=== PATIENT | female | born 1945 | race Hispanic/Latino ===

== ENCOUNTER 2018-12-13 04:46 | Inpatient (IN) | payer MEDICARE ==
[2018-12-13 06:09] LABS: Basophils # (Auto) 0.2 K/mm3 (0.0-0.1); Basophils % (Auto) 0.9 % (0.0-1.8); Eosinophils # (Auto) 0.7 K/mm3 (0.0-0.4); Eosinophils % (Auto) 3.3 % (0.0-4.3); Hematocrit 38.3 % (30.3-42.9); Lymphocytes # (Auto) 1.6 K/mm3 (1.2-5.4); Mean Corpuscular HGB Conc 34 % (30-34); Mean Corpuscular Volume 97 fl (79-97); Monocytes # (Auto) 1.3 K/mm3 (0.0-0.8); Monocytes % (Auto) 6.4 % (0.0-7.3); Platelet Count 318 K/mm3 (140-440); Red Blood Count 3.93 M/mm3 (3.65-5.03); Red Cell Distribution Width 13.3 % (13.2-15.2)
[2018-12-13 06:17] LABS: INR 1.05 (0.87-1.13); Partial Thromboplastin Time 29.3 Sec. (24.2-36.6)
[2018-12-13 06:37] LABS: Alanine Aminotransferase 7 units/L (7-56); Albumin 3.4 g/dL (3.9-5); BUN/Creatinine Ratio 9; Blood Urea Nitrogen 6 mg/dL (7-17); Calcium 9.1 mg/dL (8.4-10.2); Hemolysis Index 20
[2018-12-13 07:56] LABS: Bacteria,Urine 1+ /HPF (Negative); Bilirubin,Urine NEG (Negative); Blood,Urine SM (Negative); Color,Urine Yellow (Yellow); Protein,Urine <15 mg/dL mg/dL (Negative); Urobilinogen,Urine < 2.0 mg/dL (<2.0)
[2018-12-13] MEDS ORDERED: NACL 0.9% 1000 ML IV ONE (08:43)
--- NOTE | 2018-12-13 08:51 | Emergency Department Report ---
ED Abdominal Pain HPI - General Chief Complaint: Altered Mental Status Stated Complaint: POSSIBLE SYNCOPAL EPISODE, ABD PAIN, WEAK Time Seen by Provider: 12/13/18 08:12 Source: patient, EMS Mode of arrival: Stretcher Limitations: Physical Limitation - History of Present Illness Initial Comments: Mrs. Orta is a 73-year-old female with history of COPD, tobacco abuse, hypertension, rheumatoid arthritis, "leaky heart valve", chronic back pain, who presents with lower abdominal pain and diarrhea which began this morning. Severe cramping pain in the right lower quadrant and left lower quadrant. Previous history of cholecystectomy and tubal ligation. She felt dizzy and faint as if she was going to pass out this morning. She had stumbling stagge ring gait. Her daughter called 911 concerned for stroke. She continues to have persistent lower abdominal pain. She has productive cough which is unchanged. Mrs. Orta takes prednisone 5 mg daily. She was told that her appendix was removed during her tubal ligation surgery. PCP Dr. Tiffanie Whitney [place] [employer] Secretary Dr. Diego [place] She lives with her , daughter and grandson. 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 She previously smoked one pack of cigarettes per day. She currently smokes 6 cigarettes per day. She is retired. 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 MD Complaint: abdominal pain -: Gradual, This morning Location: LLQ, RLQ Severity: severe Severity scale (0 -10): 8 Quality: cramping Consistency: constant Improves With: nothing Worsens With: nothing Associated Symptoms: diarrhea - Related Data Home Medications Medication Instructions Recorded Confirmed Last Taken ALBUTEROL Inhaler (OR & NICU) 2 puff IH QID PRN 03/20/14 03/20/14 Unknown [Proair] ALPRAZolam [Xanax TAB] 1 mg PO BID 03/20/14 03/20/14 Unknown Gabapentin 400 mg PO BID 03/20/14 03/20/14 Unknown HYDROcodone/ACETAMINOPHEN [Lortab 7.5 mg PO QDAY 03/20/14 03/20/14 Unknown 7.5-325 mg Tablet] Lisinopril 10 mg PO QDAY 03/20/14 03/20/14 Unknown Nebulizer [Compact Compressor 2.5 mg IH QID PRN 03/20/14 03/20/14 Unknown Nebulizer] Allergies Allergy/AdvReac Type Severity Reaction Status Date / Time No Known Allergies Allergy Unverified 03/20/14 18:18 ED Review of Systems ROS: Stated complaint: POSSIBLE SYNCOPAL EPISODE, ABD PAIN, WEAK Other details as noted in HPI Comment: All other systems reviewed and negative Constitutional: malaise. denies: fever Gastrointestinal: abdominal pain, diarrhea Neurological: abnormal gait ED Past Medical Hx - Past Medical History Previous Medical History?: Yes Hx Hypertension: Yes Hx Arthritis: Yes (RA) Hx COPD: Yes Additional medical history: leaking heart valve, heart murmur - Social History Smoking Status: Current Every Day Smoker Substance Use Type: None - Medications Home Medications: Home Medications Medication Instructions Recorded Confirmed Last Taken Type ALBUTEROL Inhaler (OR & NICU) 2 puff IH QID PRN 03/20/14 03/20/14 Unknown History [Proair] ALPRAZolam [Xanax TAB] 1 mg PO BID 03/20/14 03/20/14 Unknown History Gabapentin 400 mg PO BID 03/20/14 03/20/14 Unknown History HYDROcodone/ACETAMINOPHEN [Lortab 7.5 mg PO QDAY 03/20/14 03/20/14 Unknown History 7.5-325 mg Tablet] Lisinopril 10 mg PO QDAY 03/20/14 03/20/14 Unknown History Nebulizer [Compact Compressor 2.5 mg IH QID PRN 03/20/14 03/20/14 Unknown History Nebulizer] ED Physical Exam - General Limitations: No Limitations General appearance: alert, in no apparent distress - Head Head exam: Present: atraumatic, normocephalic - Eye Eye exam: Present: normal appearance - ENT ENT exam: Present: mucous membranes moist - Neck Neck exam: Present: normal inspection, full ROM. Absent: tenderness, menin gismus - Respiratory Respiratory exam: Present: normal lung sounds bilaterally. Absent: respiratory distress, wheezes, rales, rhonchi - Cardiovascular Cardiovascular Exam: Present: regular rate, normal rhythm, normal heart sounds. Absent: systolic murmur, diastolic murmur, rubs, gallop - GI/Abdominal GI/Abdominal exam: Present: soft, normal bowel sounds. Absent: distended, tend erness, guarding, rebound - Extremities Exam Extremities exam: Present: normal inspection - Back Exam Back exam: Present: normal inspection - Neurological Exam Neurological exam: Present: alert, oriented X3, CN II-XII intact, normal gait. Absent: motor sensory deficit - Expanded Neurological Exam Expanded Patient oriented to: Present: person, place, time Speech: Present: fluid speech Cranial nerves: EOM's Intact: Normal, Gag Reflex: Normal Cerebellar function: Finger to Nose: Normal, Heel to [place]: Normal Upper motor neuron: Yaniv Neglect: Normal, Pronator Drift: Normal Sensory exam: Upper Extremity Light Touch: Normal Motor strength exam: RUE: 5, LUE: 5, RLE: 5, LLE: 5 Best Eye Response ([place]): (4) open spontaneously Best Motor Response ([place]): (6) obeys commands Best Verbal Response ([place]): (5) oriented [place] Total: 15 - Psychiatric Psychiatric exam: Present: normal affect, normal mood - Skin Skin exam: Present: warm, dry, intact, normal color. Absent: rash ED Course Vital Signs 12/13/18 12/13/18 12/13/18 04:49 04:58 05:00 Pulse Rate 82 70 Respiratory 18 18 18 Rate Blood Pressure 96/43 102/69 Blood Pressure [Right] O2 Sat by Pulse 96 96 95 Oximetry 12/13/18 12/13/18 12/13/18 05:15 05:30 05:42 Pulse Rate 71 72 74 Respiratory 21 18 16 Rate Blood Pressure 91/60 92/58 Blood Pressure [Right] O2 Sat by Pulse 93 93 98 Oximetry 12/13/18 12/13/18 12/13/18 05:45 06:00 06:15 Pulse Rate 76 74 70 Respiratory 16 17 18 Rate Blood Pressure 102/67 104/58 95/62 Blood Pressure [Right] O2 Sat by Pulse 97 95 96 Oximetry 12/13/18 12/13/18 12/13/18 06:30 07:15 09:52 Pulse Rate 70 81 72 Respiratory 19 18 18 Rate Blood Pressure 96/62 Blood Pressure 101/67 130/73 [Right] O2 Sat by Pulse 96 96 97 Oximetry ED Medical Decision Making - Lab Data Result diagrams: 12/13/18 05:59 12/13/18 05:59 - EKG Data 12/13/18 08:51 EKG obtained 0750 Normal sinus rhythm at 60 beats a minute normal axis normal intervals no ST-T signs of ischemia normal EKG - Radiology Data Radiology results: report reviewed interpreted by me: CT had chronic sinusitis, CT chest no acute process, CT abdomen and pelvis findings of colitis - Medical Decision Making Mr. Orta presents with abdominal pain cramping diarrhea this corresponds to colitis findings on CT. I suspect staggering gait due to transient hypotension and vasovagal syndrome and illness. No indication of the lines of TIA or CVA. Given antibiotics in the ED, sepsis protocol initiated. Leukocytosis present with colitis and chronic steroid use. Admitted to hospitalist service Critical care attestation.: If time is entered above; I have spent that time in minutes in the direct care of this critically ill patient, excluding procedure time. ED Disposition Clinical Impression: Colitis, SIRS (systemic inflammatory response syndrome) Disposition: OP ADMIT IP TO THIS HOSP Is pt being admited?: Yes Does the pt Need Aspirin: No Condition: Stable
[2018-12-13] MEDS: MAXIPIME/NS 2 GM/100 ML 2 GM/100 ML BAG IV SCH ×3 (09:39→23:35)
--- NOTE | 2018-12-13 09:49 | Cat Scan Report ---
CT HEAD WITHOUT CONTRAST: HISTORY: ataxia. TECHNIQUE: Sequential 2.5mm CT images. COMPARISON: none. FINDINGS: Cerebral Parenchyma: Within normal limits. Cerebellum: Within normal limits. Brainstem: Within normal limits. Ventricles: Normal. Sella: Normal. Extra-axial spaces: Normal. Basal Cisterns: Normal. Intracranial Hemorrhage: None. Midline Shift: None. Calvarium: Normal. Sinuses: Mild diffuse mucosal thickening is noted throughout all paranasal sinuses. Mastoid Air Cells: Normal. Visualized Orbits: Normal. IMPRESSION: Cranial CT scan within normal limits. Mild chronic pansinusitis.
--- NOTE | 2018-12-13 09:54 | Cat Scan Report ---
CT CHEST WITHOUT CONTRAST: HISTORY: Cough, COPD, leukocytosis. COMPARISON: none. TECHNIQUE: Helical CT in 1.25mm intervals without IV contrast. Sagittal and coronal reformatted images. FINDINGS: Thyroid gland: Normal. Tracheobronchial tree: Normal. Esophagus: Normal. Heart: Normal size. Mild coronary artery calcifications. Pericardium: Normal. Mediastinum: The aorta is mildly ectatic with scattered calcifications. No mediastinal mass or pathologic adenopathy. Lung Elias: There are mild chronic interstitial changes throughout both lungs. No evidence for mass, nodule or infiltrate. Pleural Spaces: Normal. Musculoskeletal: Osteopenia. Mild thoracic spondylosis. IMPRESSION: No acute process is identified in the chest.
--- NOTE | 2018-12-13 09:58 | Cat Scan Report ---
CT ABDOMEN PELVIS WITH CONTRAST: HISTORY: Lower abdominal pain, diarrhea, leukocytosis. COMPARISON: none. TECHNIQUE: Helical CT in 1.25mm intervals following IV contrast. Sagittal and coronal reconstructions. FINDINGS: Liver: Normal. Biliary system: Cholecystectomy. Pancreas: Mild atrophy. No mass or inflammation. Spleen: Normal. Kidneys/ureters/bladder: There is scattered small simple appearing renal cysts in both kidneys. No evidence for mass, hydronephrosis or perinephric fluid. The ureters and bladder are unremarkable. Adrenal glands: Normal. Aorta: Mild diffuse calcifications. No dissection, stenosis or aneurysm. Intestines: No oral contrast was administered which limits this exam. There is moderate circumferential thickening of the descending and sigmoid colon consistent with a nonspecific colitis. The remaining bowel loops are unremarkable. No evidence for obstruction or obvious mass. Appendix: Not confidently identified, correlate with surgical history. Pelvic viscera: There are a few small calcified uterine fibroids in the uterus. The adnexa are unremarkable. Ascites: None. Adenopathy: None. Musculoskeletal: Osteopenia. Mild thoracolumbar spondylosis. IMPRESSION: Circumferential thickening of the distal colon consistent with a nonspecific colitis. Scattered simple renal cysts. Cholecystectomy. Mild uterine fibroid disease.
[2018-12-13] MEDS: FLAGYL 500 MG/100 ML 500 MG/100 ML BAG IV SCH ×3 (10:23→21:45)
[2018-12-13] MEDS ORDERED: NACL 0.9% 1000 ML 1,000 ML ONE (11:28)
[2018-12-13] MEDS ORDERED: MORPHINE IV ONE (12:59)
--- NOTE | 2018-12-13 15:34 | Gastroenterology Consultation ---
<GLADIS HAN - Last Filed: 12/13/18 15:51> History of Present Illness - Reason for Consult Consult date: 12/13/18 abdominal pain Requesting physician: RONNIE MAYEN - History of Present Illness Patient is a 73 y/o female with PMH of COPD, tobacco abuse, HTN, rheumatoid arthritis, "leaky heart valve", and chronic back pain who presented to ED with c/o lower abdominal pain and diarrhea with associated dizziness. Upon admission, she underwent an abd CT that showed colitis. This afternoon patient was resting in bed w/o acute distress but ill appearing. She reports lower abdominal pain/cramping x ~1 week that has progressively worsened with associated watery blood tinged diarrhea x 1 day with BMs >10-15. Normal bowel habit is BMs x 2-3 /week with solid stool. Admits to nausea but no vomiting, CP, fever, hematemesis, melena, or constipation. Has chronic cough with mild SOB 2/2 COPD. States she recently took antibiotics (completed a few weeks ago; amoxicillin and levaquin) for tx of bronchitis. No recent travel or known ill contacts. No hx or Fhx of IBD or colon CA. Has a hx of colon polyps and is followed by [facility] gastroenterology specialists with last colonoscopy in 1999 with negative results per pt report. Past History Past Medical History: other (see HPI) Past Surgical History: appendectomy, cholecystectomy, Other (tubal ligation, cysts removed from breasts) Social history: smoking. denies: alcohol abuse Medications and Allergies Allergies Allergy/AdvReac Type Severity Reaction Status Date / Time No Known Allergies Allergy Unverified 03/20/14 18:18 Home Medications Medication Instructions Recorded Confirmed Last Taken Type ALBUTEROL Inhaler (OR & NICU) 2 puff IH QID PRN 03/20/14 12/13/18 Unknown History [Proair] ALPRAZolam [Xanax TAB] 1 mg PO BID 03/20/14 12/13/18 Unknown History Gabapentin 400 mg PO BID 03/20/14 12/13/18 Unknown History Lisinopril 10 mg PO QDAY 03/20/14 12/13/18 Unknown History ALBUTEROL NEB's [Proventil] 2.5 mg IH Q6H PRN 12/13/18 12/13/18 Unknown History Budesonide/Formoterol Fumarate 2 puff IH BID 12/13/18 12/13/18 12/12/18 History [Symbicort 80-4.5 Mcg Inhaler] Fluticasone [Flonase] 1 spray NS QDAY 12/13/18 12/13/18 Unknown History Tiotropium Herod [Spiriva 2 puff IH DAILY 12/13/18 12/13/18 Unknown History Respimat] Active Meds: Active Medications Cefepime HCl (Maxipime/Ns 2 Gm/100 Ml) 2 gm in 100 mls @ 200 mls/hr IV Q8HR [facility]; Protocol Last Admin: 12/13/18 14:30 Dose: 200 mls/hr Documented by: Metronidazole (Flagyl 500 Mg/100 Ml) 500 mg in 100 mls @ 100 mls/hr IV Q8HR [facility]; Protocol Last Admin: 12/13/18 15:12 Dose: 100 mls/hr Documented by: medications reviewed/updated as required Review of Systems - Review of Systems All systems: negative Constitutional: other (dizziness) Gastrointestinal: abdominal pain, nausea Exam - Constitutional Vital Signs: Temp Pulse Resp BP Pulse Ox 98.0 F 68 16 130/75 99 12/13/18 13:18 12/13/18 14:20 12/13/18 14:20 12/13/18 13:18 12/13/18 14:20 General appearance: no acute distress, other (ill appearing) - Respiratory Respiratory effort: normal Respiratory: bilateral: diminished - Cardiovascular Rhythm: regular - Gastrointestinal General gastrointestinal: Present: soft, tender (mild TTP in lower abdomen), non-distended, normal bowel sounds - Neurologic Neurological: alert and oriented x3 - Labs CBC & Chem 7: 12/13/18 05:59 12/13/18 05:59 Lab Results: Laboratory Results - last 24 hr 12/13/18 12/13/18 12/13/18 05:59 05:59 05:59 WBC 20.1 H RBC 3.93 Hgb 13.0 Hct 38.3 MCV 97 MCH 33 H MCHC 34 RDW 13.3 Plt Count 318 Lymph % (Auto) 8.[address] [place] % (Auto) 6.4 Eos % (Auto) 3.3 Baso % (Auto) 0.9 Lymph # 1.6 [place] # 1.3 H Eos # 0.7 H Baso # 0.2 H Seg Neutrophils % 81.4 H Seg Neutrophils # 16.4 H PT 13.4 INR 1.05 APTT 29.3 Sodium 134 L Potassium 3.5 L Chloride 100.8 Carbon Dioxide 21 L Anion Gap 16 BUN 6 L Creatinine 0.7 Estimated GFR > 60 BUN/Creatinine Ratio 9 Glucose 104 H Lactic Acid Calcium 9.1 Total Bilirubin 0.20 AST 13 ALT 7 Alkaline Phosphatase 75 Total Protein 5.9 L Albumin 3.4 L Albumin/Globulin Ratio 1.4 Urine Color Urine Turbidity Urine pH Ur Specific [place] Urine Protein Urine Glucose (UA) Urine Ketones Urine Blood Urine Nitrite Urine Bilirubin Urine Urobilinogen Ur Leukocyte Esterase Urine WBC (Auto) Urine RBC (Auto) U Epithel Cells (Auto) Urine Bacteria (Auto) 12/13/18 12/13/18 12/13/18 07:10 08:52 11:29 WBC RBC Hgb Hct MCV MCH MCHC RDW Plt Count Lymph % (Auto) [place] % (Auto) Eos % (Auto) Baso % (Auto) Lymph # [facility] # Eos # Baso # Seg Neutrophils % Seg Neutrophils # PT INR APTT Sodium Potassium Chloride Carbon Dioxide Anion Gap BUN Creatinine Estimated GFR BUN/Creatinine Ratio Glucose Lactic Acid 0.80 0.90 Calcium Total Bilirubin AST ALT Alkaline Phosphatase Total Protein Albumin Albumin/Globulin Ratio Urine Color Yellow Urine Turbidity Clear Urine pH 6.0 Ur Specific [place] 1.008 Urine Protein <15 mg/dl Urine Glucose (UA) Neg Urine Ketones Neg Urine Blood Sm Urine Nitrite Neg Urine Bilirubin Neg Urine Urobilinogen < 2.0 Ur Leukocyte Esterase Tr Urine WBC (Auto) 2.0 Urine RBC (Auto) 2.0 U Epithel Cells (Auto) < 1.0 Urine Bacteria (Auto) 1+ Assessment and Plan 1.lower abdominal pain 2.diarrhea 3.colitis see on CT -afebrile -WBC 20.1 -H/H WNL -abd CT showed nonspecific colitis -last colonoscopy 1999 with negative results per pt report (followed by [facility] gastroenterology specialists; records unavailable) -etiology-likely infectious given history of recent abx therapy vs other -no plan for scope at this time -stool studies pending included C-diff -agree with empiric antibiotics -okay for clears if tolerated -continue to rend labs and supportive care -will follow <MEET HINOJOSA - Last Filed: 12/13/18 23:44> Medications and Allergies Active Meds: Active Medications Acetaminophen (Tylenol) 650 mg PO Q4H PRN PRN Reason: Pain MILD(1-3)/Fever >100.5/SALVADOR Albuterol (Proventil) 2.5 mg IH Q6HRT PRN PRN Reason: Wheezing Alprazolam (Xanax) 1 mg PO BID [facility] Last Admin: 12/13/18 21:46 Dose: 1 mg Documented by: Arformoterol Tartrate (Brovana Nebu) 15 mcg IH Q12HRT [facility] Budesonide (Pulmicort) 0.5 mg IH Q12HRT [facility] Clonidine HCl (Catapres-Tts Patch) 0.1 mg TD Tu [facility] Last Admin: 12/13/18 22:56 Dose: 0.1 mg Documented by: Enoxaparin Sodium (Lovenox) 40 mg SUB-Q QDAY@2200 [facility] Last Admin: 12/13/18 21:44 Dose: 40 mg Documented by: Fluticasone Propionate (Flonase) 50 mcg NS QDAY [facility] Last Admin: 12/13/18 22:55 Dose: 50 mcg Documented by: Hydromorphone HCl (Dilaudid) 0.5 mg IV Q3H PRN PRN Reason: Pain , Severe (7-10) Cefepime HCl (Maxipime/Ns 2 Gm/100 Ml) 2 gm in 100 mls @ 200 mls/hr IV Q8HR [facility]; Protocol Last Admin: 12/13/18 23:35 Dose: 200 mls/hr Documented by: Metronidazole (Flagyl 500 Mg/100 Ml) 500 mg in 100 mls @ 100 mls/hr IV Q8HR [facility]; Protocol Last Admin: 12/13/18 21:45 Dose: 100 mls/hr Documented by: Sodium Chloride (Nacl 0.9% 1000 Ml) 1,000 mls @ 75 mls/hr IV DIRECT [facility] Last Admin: 12/13/18 21:45 Dose: 75 mls/hr Documented by: Metoclopramide HCl (Reglan) 10 mg IV Q6H PRN PRN Reason: Nausea And Vomiting Ondansetron HCl (Zofran) 4 mg IV Q8H PRN PRN Reason: Nausea And Vomiting Sodium Chloride (Sodium Chloride Flush Syringe 10 Ml) 10 ml IV BID [facility] Last Admin: 12/13/18 21:47 Dose: 10 ml Documented by: Sodium Chloride (Sodium Chloride Flush Syringe 10 Ml) 10 ml IV PRN PRN PRN Reason: LINE FLUSH Tiotropium Herod (Spiriva) 1 puff IH Q24HR [facility] Exam - Constitutional Vital Signs: Temp Pulse Resp BP Pulse Ox 98.2 F 67 18 135/62 96 12/13/18 20:13 12/13/18 20:13 12/13/18 20:13 12/13/18 20:13 12/13/18 20:13 - Labs CBC & Chem 7: 12/13/18 05:59 12/13/18 05:59 Lab Results: Laboratory Results - last 24 hr 12/13/18 12/13/18 12/13/18 05:59 05:59 05:59 WBC 20.1 H RBC 3.93 Hgb 13.0 Hct 38.3 MCV 97 MCH 33 H MCHC 34 RDW 13.3 Plt Count 318 Lymph % (Auto) 8.[address] [place] % (Auto) 6.4 Eos % (Auto) 3.3 Baso % (Auto) 0.9 Lymph # 1.6 [facility] # 1.3 H Eos # 0.7 H Baso # 0.2 H Seg Neutrophils % 81.4 H Seg Neutrophils # 16.4 H PT 13.4 INR 1.05 APTT 29.3 Sodium 134 L Potassium 3.5 L Chloride 100.8 Carbon Dioxide 21 L Anion Gap 16 BUN 6 L Creatinine 0.7 Estimated GFR > 60 BUN/Creatinine Ratio 9 Glucose 104 H Hemoglobin A1c Lactic Acid Calcium 9.1 Total Bilirubin 0.20 AST 13 ALT 7 Alkaline Phosphatase 75 Total Protein 5.9 L Albumin 3.4 L Albumin/Globulin Ratio 1.4 Urine Color Urine Turbidity Urine pH Ur Specific [place] Urine Protein Urine Glucose (UA) Urine Ketones Urine Blood Urine Nitrite Urine Bilirubin Urine Urobilinogen Ur Leukocyte Esterase Urine WBC (Auto) Urine RBC (Auto) U Epithel Cells (Auto) Urine Bacteria (Auto) 12/13/18 12/13/18 12/13/18 07:10 08:52 11:29 WBC RBC Hgb Hct MCV MCH MCHC RDW Plt Count Lymph % (Auto) [place] % (Auto) Eos % (Auto) Baso % (Auto) Lymph # [facility] # Eos # Baso # Seg Neutrophils % Seg Neutrophils # PT INR APTT Sodium Potassium Chloride Carbon Dioxide Anion Gap BUN Creatinine Estimated GFR BUN/Creatinine Ratio Glucose Hemoglobin A1c Lactic Acid 0.80 0.90 Calcium Total Bilirubin AST ALT Alkaline Phosphatase Total Protein Albumin Albumin/Globulin Ratio Urine Color Yellow Urine Turbidity Clear Urine pH 6.0 Ur Specific [place] 1.008 Urine Protein <15 mg/dl Urine Glucose (UA) Neg Urine Ketones Neg Urine Blood Sm Urine Nitrite Neg Urine Bilirubin Neg Urine Urobilinogen < 2.0 Ur Leukocyte Esterase Tr Urine WBC (Auto) 2.0 Urine RBC (Auto) 2.0 U Epithel Cells (Auto) < 1.0 Urine Bacteria (Auto) 1+ 12/13/18 21:14 WBC RBC Hgb Hct MCV MCH MCHC RDW Plt Count Lymph % (Auto) [place] % (Auto) Eos % (Auto) Baso % (Auto) Lymph # [facility] # Eos # Baso # Seg Neutrophils % Seg Neutrophils # PT INR APTT Sodium Potassium Chloride Carbon Dioxide Anion Gap BUN Creatinine Estimated GFR BUN/Creatinine Ratio Glucose Hemoglobin A1c 5.5 Lactic Acid Calcium Total Bilirubin AST ALT Alkaline Phosphatase Total Protein Albumin Albumin/Globulin Ratio Urine Color Urine Turbidity Urine pH Ur Specific [place] Urine Protein Urine Glucose (UA) Urine Ketones Urine Blood Urine Nitrite Urine Bilirubin Urine Urobilinogen Ur Leukocyte Esterase Urine WBC (Auto) Urine RBC (Auto) U Epithel Cells (Auto) Urine Bacteria (Auto) Assessment and Plan Advanced practitioner's assessment and plan evaluated and I agree with the plan Meet Hinojsoa M.D.
--- NOTE | 2018-12-13 20:38 | History and Physical Report ---
History of Present Illness Date of examination: 12/13/18 Date of admission: 12/13/18 11:52 Past History Past Medical History: other (see HPI) Past Surgical History: appendectomy, cholecystectomy, Other (tubal ligation, cysts removed from breasts) Social history: smoking. denies: alcohol abuse Medications and Allergies Allergies Allergy/AdvReac Type Severity Reaction Status Date / Time No Known Allergies Allergy Unverified 03/20/14 18:18 Home Medications Medication Instructions Recorded Confirmed Last Taken Type ALBUTEROL Inhaler (OR & NICU) 2 puff IH QID PRN 03/20/14 12/13/18 Unknown History [Proair] ALPRAZolam [Xanax TAB] 1 mg PO BID 03/20/14 12/13/18 Unknown History Gabapentin 400 mg PO BID 03/20/14 12/13/18 Unknown History Lisinopril 10 mg PO QDAY 03/20/14 12/13/18 Unknown History ALBUTEROL NEB's [Proventil] 2.5 mg IH Q6H PRN 12/13/18 12/13/18 Unknown History Budesonide/Formoterol Fumarate 2 puff IH BID 12/13/18 12/13/18 12/12/18 History [Symbicort 80-4.5 Mcg Inhaler] Fluticasone [Flonase] 1 spray NS QDAY 12/13/18 12/13/18 Unknown History Tiotropium [place] [Spiriva 2 puff IH DAILY 12/13/18 12/13/18 Unknown History Respimat] Active Meds: Active Medications Cefepime HCl (Maxipime/Ns 2 Gm/100 Ml) 2 gm in 100 mls @ 200 mls/hr IV Q8HR CARMEL; Protocol Last Admin: 12/13/18 14:30 Dose: 200 mls/hr Documented by: Metronidazole (Flagyl 500 Mg/100 Ml) 500 mg in 100 mls @ 100 mls/hr IV Q8HR CARMEL; Protocol Last Admin: 12/13/18 15:12 Dose: 100 mls/hr Documented by: Exam - Constitutional Vitals: Temp Pulse Resp BP Pulse Ox 98.2 F 67 18 135/62 96 12/13/18 20:13 12/13/18 20:13 12/13/18 20:13 12/13/18 20:13 12/13/18 20:13 Results - Labs CBC & Chem 7: 12/13/18 05:59 12/13/18 05:59 Labs: Laboratory Last Values WBC 20.1 K/mm3 (4.5-11.0) H 12/13/18 05:59 RBC 3.93 M/mm3 (3.65-5.03) 12/13/18 05:59 Hgb 13.0 gm/dl (10.1-14.3) 12/13/18 05:59 Hct 38.3 % (30.3-42.9) 12/13/18 05:59 MCV 97 fl (79-97) 12/13/18 05:59 MCH 33 pg (28-32) H 12/13/18 05:59 MCHC 34 % (30-34) 12/13/18 05:59 RDW 13.3 % (13.2-15.2) 12/13/18 05:59 Plt Count 318 K/mm3 (140-440) 12/13/18 05:59 Lymph % (Auto) 8.0 % (13.4-35.0) L 12/13/18 05:59 [place] % (Auto) 6.4 % (0.0-7.3) 12/13/18 05:59 Eos % (Auto) 3.3 % (0.0-4.3) 12/13/18 05:59 Baso % (Auto) 0.9 % (0.0-1.8) 12/13/18 05:59 Lymph # 1.6 K/mm3 (1.2-5.4) 12/13/18 05:59 [place] # 1.3 K/mm3 (0.0-0.8) H 12/13/18 05:59 Eos # 0.7 K/mm3 (0.0-0.4) H 12/13/18 05:59 Baso # 0.2 K/mm3 (0.0-0.1) H 12/13/18 05:59 Seg Neutrophils % 81.4 % (40.0-70.0) H 12/13/18 05:59 Seg Neutrophils # 16.4 K/mm3 (1.8-7.7) H 12/13/18 05:59 PT 13.4 Sec. (12.2-14.9) 12/13/18 05:59 INR 1.05 (0.87-1.13) 12/13/18 05:59 APTT 29.3 Sec. (24.2-36.6) 12/13/18 05:59 Sodium 134 mmol/L (137-145) L 12/13/18 05:59 Potassium 3.5 mmol/L (3.6-5.0) L 12/13/18 05:59 Chloride 100.8 mmol/L (98-107) 12/13/18 05:59 Carbon Dioxide 21 mmol/L (22-30) L 12/13/18 05:59 16 mmol/L 12/13/18 05:59 BUN 6 mg/dL (7-17) L 12/13/18 05:59 0.7 mg/dL (0.7-1.2) 12/13/18 05:59 Estimated GFR > 60 ml/min 12/13/18 05:59 9 % 12/13/18 05:59 Glucose 104 mg/dL (65-100) H 12/13/18 05:59 Lactic Acid 0.90 mmol/L (0.7-2.0) 12/13/18 11:29 Calcium 9.1 mg/dL (8.4-10.2) 12/13/18 05:59 0.20 mg/dL (0.1-1.2) 12/13/18 05:59 AST 13 units/L (5-40) 12/13/18 05:59 ALT 7 units/L (7-56) 12/13/18 05:59 75 units/L (35-129) 12/13/18 05:59 5.9 g/dL (6.3-8.2) L 12/13/18 05:59 3.4 g/dL (3.9-5) L 12/13/18 05:59 1.4 % 12/13/18 05:59 Yellow (Yellow) 12/13/18 07:10 Clear (Clear) 12/13/18 07:10 6.0 (5.0-7.0) 12/13/18 07:10 Ur Specific [place] 1.008 (1.003-1.030) 12/13/18 07:10 <15 mg/dl mg/dL (Negative) 12/13/18 07:10 Neg mg/dL (Negative) 12/13/18 07:10 Neg mg/dL (Negative) 12/13/18 07:10 Sm (Negative) 12/13/18 07:10 Neg (Negative) 12/13/18 07:10 Neg (Negative) 12/13/18 07:10 < 2.0 mg/dL (<2.0) 12/13/18 07:10 Ur Leukocyte Esterase Tr (Negative) 12/13/18 07:10 2.0 /HPF (0.0-6.0) 12/13/18 07:10 2.0 /HPF (0.0-6.0) 12/13/18 07:10 U Epithel Cells (Auto) < 1.0 /HPF (0-13.0) 12/13/18 07:10 1+ /HPF (Negative) 12/13/18 07:10
[2018-12-13] MEDS ORDERED: SODIUM CHLORIDE FLUSH SYRINGE 10 ML IV PRN (20:39)
[2018-12-13] MEDS ORDERED: REGLAN IV PRN (20:39)
[2018-12-13] MEDS ORDERED: TYLENOL PO PRN (20:39)
[2018-12-13] MEDS ORDERED: DILAUDID IV PRN (20:39)
[2018-12-13] MEDS ORDERED: ZOFRAN IV PRN (20:39)
[2018-12-13] MEDS ORDERED: PROVENTIL IH PRN (20:40)
[2018-12-13] MEDS: LOVENOX SUB-Q SCH (21:44)
[2018-12-13] MEDS: NACL 0.9% 1000 ML 1,000 ML IV SCH (21:45)
[2018-12-13] MEDS: SODIUM CHLORIDE FLUSH SYRINGE 10 ML IV SCH (21:47)
[2018-12-13] MEDS ORDERED: XANAX PO SCH (22:00)
[2018-12-13] MEDS ORDERED: BUDESONIDE IH SCH (22:00)
[2018-12-13] MEDS ORDERED: CATAPRES-TTS PATCH TD SCH (22:00)
[2018-12-13] MEDS ORDERED: FORMOTEROL FUMARATE IH SCH (22:00)
[2018-12-13] MEDS: FLONASE NS SCH (22:55)
[2018-12-14] MEDS: FLAGYL 500 MG/100 ML 500 MG/100 ML BAG IV SCH ×3 (05:22→21:53)
[2018-12-14] MEDS: MAXIPIME/NS 2 GM/100 ML 2 GM/100 ML BAG IV SCH ×3 (05:23→21:53)
--- NOTE | 2018-12-14 05:50 | Event Note ---
Date: 12/13/18 See H/p in reports Colitis--r/o C diff GI consult Htn COPD
--- NOTE | 2018-12-14 06:04 | History and Physical Report ---
CHIEF COMPLAINT: 1. Altered mental status. 2. Abdominal pain. 3. Possible syncope. HISTORY OF PRESENT ILLNESS: A 73-year-old female with history of COPD, tobacco abuse, hypertension, rheumatoid arthritis, chronic back pain, presents with lower abdominal pain and diarrhea, which began this morning. The patient has cramping pain in both the right lower quadrant and the left lower quadrants. The patient has been on antibiotics recently. The patient has a history of cholecystectomy. Abdominal pain is about 6 on a scale of 1-10 and intermittent in nature. The patient has loose bowel movements about 5-6 times. Feels lightheaded. No fever or chills. The patient lives with her and daughter. She used to smoke 1 pack a day. Now, she smokes about 6 cigarettes a day. PAST MEDICAL HISTORY: As mentioned, significant for COPD, hypertension, arthritis, rheumatoid arthritis and a heart murmur. SOCIAL HISTORY: Smokes over 6 cigarettes a day. PAST SURGICAL HISTORY: Cholecystectomy and appendectomy. FAMILY HISTORY: Hypertension. REVIEW OF SYSTEMS: Significant for loose bowel movements since morning and crampy abdominal pain, intermittent in nature, 6/10 on a scale of 1-10. No fever. No nausea or vomiting. Also, felt lightheaded and about to pass out. Otherwise, review of systems negative. A 14-point review of systems done. PHYSICAL EXAMINATION: GENERAL: Elderly female, cooperative during examination. VITAL SIGNS: Temperature 98.2, pulse is 69, respirations are 18, sats are 96%, blood pressure is 135/62. HEENT: Unremarkable. Pupils equal and reactive. NECK: Supple, no lymphadenopathy, no thyromegaly. LUNGS: Clear to auscultation and percussion. Good air entry. CARDIOVASCULAR: S1, S2 heard. No gallop, no murmur, no rub. Apical impulse in left fifth intercostal space and midclavicular line. ABDOMEN: Soft and benign. No hepatosplenomegaly, no guarding, no rigidity. Hernial orifices are normal. EXTREMITIES: Good pedal pulses. No pedal edema. CENTRAL NERVOUS SYSTEM: Alert and oriented x 4. Nonfocal exam. SKIN: Normal. LABORATORY DATA: White count is 20,100, H and H is 13.0 and 38.3, platelet count is 318,000. Sodium is 134, slightly low; potassium is 3.5, slightly low. BUN and creatinine are 6 and 0.7, glucose is 104, total protein is 5.9, albumin is 3.4. Urinalysis is normal. Abdominal CT shows circumferential thickening of the distal colon consistent with nonspecific colitis, scattered single renal cyst, status post cholecystectomy, mild uterine fibroid disease. IMAGING STUDIES: CT head shows cranial CT within normal limits. Chest CT shows no acute process. EKG shows normal sinus rhythm, 68 beats per minute, normal axis intervals, no ST-T waves or signs of ischemia. ASSESSMENT AND PLAN: 1. Colitis, possible Clostridium difficile colitis because the patient was on antibiotics recently. The patient is on IV Flagyl started by the ER physician. We will continue the same. We will wait for the C. diff assay results. C. diff PCR also ordered. Vancomycin p.o. to be started, if necessary. 2. Hypertension. Continue Catapres patch in place of lisinopril. 3. Chronic obstructive pulmonary disease. Continue nebulizer treatments and Symbicort 2 puffs b.i.d. and Spiriva Respimat. 4. Peripheral neuropathy. We will hold the gabapentin for now. 5. Deep venous thrombosis prophylaxis, Lovenox 40 mg subcutaneous daily and gastrointestinal prophylaxis. 6.Hypokalemia--Supplemented 7. Kjonrdoflfql-Aave-Amwney correct with IV NS In summary, the patient has colitis, which can be Clostridium difficile colitis. The patient had a normal colonoscopy 10 years ago, and the patient also has hypertension, COPD and peripheral neuropathy. GI consult requested. JOB# [id number] ANETA/ELIZABETH HICKMAN
[2018-12-14] MEDS: BROVANA NEBU IH SCH ×2 (07:31→20:30)
[2018-12-14] MEDS: PULMICORT IH SCH ×2 (07:31→20:30)
[2018-12-14] MEDS ORDERED: K-DUR PO NR (07:59)
[2018-12-14 08:43] LABS: Basophils # (Auto) 0.1 K/mm3 (0.0-0.1); Basophils % (Auto) 1.1 % (0.0-1.8); Eosinophils # (Auto) 0.3 K/mm3 (0.0-0.4); Eosinophils % (Auto) 3.5 % (0.0-4.3); Hematocrit 34.5 % (30.3-42.9); Hemoglobin 11.8 gm/dl (10.1-14.3); Lymphocytes # (Auto) 1.7 K/mm3 (1.2-5.4); Lymphocytes % (Auto) 17.6 % (13.4-35.0); Mean Corpuscular HGB Conc 34 % (30-34); Mean Corpuscular Volume 97 fl (79-97); Monocytes # (Auto) 0.7 K/mm3 (0.0-0.8); Monocytes % (Auto) 6.7 % (0.0-7.3); Platelet Count 268 K/mm3 (140-440); Red Blood Count 3.55 M/mm3 (3.65-5.03); Red Cell Distribution Width 13.6 % (13.2-15.2)
[2018-12-14] MEDS: XANAX PO SCH ×2 (09:04→21:53)
[2018-12-14] MEDS: FLONASE NS SCH (09:04)
[2018-12-14] MEDS: SODIUM CHLORIDE FLUSH SYRINGE 10 ML IV SCH ×2 (09:05→21:55)
[2018-12-14 09:08] LABS: Alanine Aminotransferase 7 units/L (7-56); Albumin 3.2 g/dL (3.9-5); BUN/Creatinine Ratio 7; Blood Urea Nitrogen 4 mg/dL (7-17); Hemolysis Index 11
[2018-12-14] MEDS ORDERED: SPIRIVA IH SCH (10:00)
[2018-12-14] MEDS: NACL 0.9% 1000 ML 1,000 ML IV SCH (13:19)
--- NOTE | 2018-12-14 13:26 | Gastroenterology Progress Note ---
<GLADIS HAN - Last Filed: 12/14/18 13:22> Assessment and Plan 1.lower abdominal pain 2.diarrhea 3.colitis see on CT -afebrile -WBC tended down from 20.1 to 9.9 -H/H WNL -abd CT showed nonspecific colitis -last colonoscopy 1999 with negative results per pt report (followed by [facility] gastroenterology specialists; records unavailable) -etiology-likely infectious given history of recent abx therapy vs other -clinically, patient is stable. Reports feeling better with abd pain improving but has continued watery/bloody stool with BMs x 2 so far this am. No N/V. Tolerating clears. -no plan for scope at this time -stool studies pending including C-diff -continue empiric antibiotics -advance diet as tolerated -continue to tend labs and supportive care -will follow Subjective Date of service: 12/14/18 Principal diagnosis: colitis Interval history: Patient resting in bed w/o acute distress. Reports feeling better with abd pain improving. Has had BMs x 2 so far today with continued watery/bloody stool. No N/V. Tolerating clears. Objective - Constitutional Vitals: Temp Pulse Resp BP Pulse Ox 98.0 F 64 20 122/67 93 12/14/18 07:46 12/14/18 07:46 12/14/18 07:46 12/14/18 07:46 12/14/18 07:46 General appearance: no acute distress - EENT Eyes: PERRL, EOM intact ENT: hearing intact - Respiratory Respiratory effort: normal - Cardiovascular Rhythm: regular - Gastrointestinal General gastrointestinal: Present: soft, tender (slight TTP), non-distended, normal bowel sounds - Neurologic Neurological: alert and oriented x3 - Labs CBC & Chem 7: 12/14/18 08:26 12/14/18 08:26 Labs: Laboratory Results - last 24 hr 12/13/18 12/14/18 12/14/18 21:14 08:26 08:26 WBC 9.9 RBC 3.55 L Hgb 11.8 Hct 34.5 MCV 97 MCH 33 H MCHC 34 RDW 13.6 Plt Count 268 Lymph % (Auto) 17.6 [place] % (Auto) 6.7 Eos % (Auto) 3.5 Baso % (Auto) 1.1 Lymph # 1.7 [place] # 0.7 Eos # 0.3 Baso # 0.1 Seg Neutrophils % 71.1 H Seg Neutrophils # 7.0 Sodium 138 Potassium 3.4 L Chloride 106.2 Carbon Dioxide 19 L Anion Gap 16 BUN 4 L Creatinine 0.6 L Estimated GFR > 60 BUN/Creatinine Ratio 7 Glucose 99 Hemoglobin A1c 5.5 Calcium 8.0 L Total Bilirubin 0.40 AST 10 ALT 7 Alkaline Phosphatase 63 Total Protein 5.5 L Albumin 3.2 L Albumin/Globulin Ratio 1.4 <MEET HINOJOSA - Last Filed: 12/14/18 23:11> Assessment and Plan Patient seen and examined. I agree with the advanced practitioner's assessment and plan, with the following additions: patient reports still with watery diarrhea and severe abdominal pain. Given high wbc count on admission and recent abx, infection with Cdiff highest on Differential diagnosis; awaiting stool studies, continue empiric Abx in the meantime and supportive care Objective - Constitutional Vitals: Temp Pulse Resp BP Pulse Ox 98.6 F 66 18 146/77 94 12/14/18 20:05 12/14/18 20:33 12/14/18 20:33 12/14/18 20:05 12/14/18 20:32 - Labs CBC & Chem 7: 12/14/18 08:26 12/14/18 08:26 Labs: Laboratory Results - last 24 hr 12/14/18 12/14/18 08:26 08:26 WBC 9.9 RBC 3.55 L Hgb 11.8 Hct 34.5 MCV 97 MCH 33 H MCHC 34 RDW 13.6 Plt Count 268 Lymph % (Auto) 17.6 [place] % (Auto) 6.7 Eos % (Auto) 3.5 Baso % (Auto) 1.1 Lymph # 1.7 [place] # 0.7 Eos # 0.3 Baso # 0.1 Seg Neutrophils % 71.1 H Seg Neutrophils # 7.0 Sodium 138 Potassium 3.4 L Chloride 106.2 Carbon Dioxide 19 L Anion Gap 16 BUN 4 L Creatinine 0.6 L Estimated GFR > 60 BUN/Creatinine Ratio 7 Glucose 99 Calcium 8.0 L Total Bilirubin 0.40 AST 10 ALT 7 Alkaline Phosphatase 63 Total Protein 5.5 L Albumin 3.2 L Albumin/Globulin Ratio 1.4
--- NOTE | 2018-12-14 14:52 | Progress Note ---
Assessment and Plan Assessment and plan: 73-year-old female with past medical history significant for COPD, hypertension, peripheral neuropathy presented to the emergency department complaining of lower abdominal pain and diarrhea that started yesterday. Patient states she has watery diarrhea initially and later blood mixed. Patient has history of recent use of antibiotics. Colitis; likely due to infectious: - Patient is on IV cefepime and Flagyl - C. difficile PCR is pending - Abdominal pain is getting better - Check consult appreciated, no intention to scope at this time Hypertension - Controlled COPD - Not in exacerbation, continue current medication regimen DVT prophylaxis Disposition; continue inpatient care. History Interval history: Patient was seen and evaluated this morning, patient's abdominal pain is getting better. Hospitalist Physical - Physical exam Narrative exam: Not in cardiopulmonary distress. The patient appeared well nourished and normally developed. Vital signs as documented. Head exam is unremarkable. No scleral icterus . Neck is without jugular venous distension, thyromegaly, or carotid bruits. Lungs are clear to auscultation. Cardiac exam reveals regular rate and Rhythm. First and second heart sounds normal. No murmurs, rubs or gallops. Abdominal exam reveals normal bowel sounds, no masses, no organomegaly and no aortic enlargement. Extremities are nonedematous and both femoral and pedal pulses are normal. 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 No focal weakness. - Constitutional Vitals: Temp Pulse Resp BP Pulse Ox 98.2 F 60 18 124/73 95 12/14/18 13:01 12/14/18 14:00 12/14/18 14:00 12/14/18 13:01 12/14/18 13:01 Results - Labs CBC & Chem 7: 12/14/18 08:26 12/14/18 08:26 Labs: Laboratory Last Values WBC 9.9 K/mm3 (4.5-11.0) 12/14/18 08:26 RBC 3.55 M/mm3 (3.65-5.03) L 12/14/18 08:26 Hgb 11.8 gm/dl (10.1-14.3) 12/14/18 08:26 Hct 34.5 % (30.3-42.9) 12/14/18 08:26 MCV 97 fl (79-97) 12/14/18 08:26 MCH 33 pg (28-32) H 12/14/18 08:26 MCHC 34 % (30-34) 12/14/18 08:26 RDW 13.6 % (13.2-15.2) 12/14/18 08:26 Plt Count 268 K/mm3 (140-440) 12/14/18 08:26 Lymph % (Auto) 17.6 % (13.4-35.0) 12/14/18 08:26 [place] % (Auto) 6.7 % (0.0-7.3) 12/14/18 08:26 Eos % (Auto) 3.5 % (0.0-4.3) 12/14/18 08:26 Baso % (Auto) 1.1 % (0.0-1.8) 12/14/18 08:26 Lymph # 1.7 K/mm3 (1.2-5.4) 12/14/18 08:26 [place] # 0.7 K/mm3 (0.0-0.8) 12/14/18 08:26 Eos # 0.3 K/mm3 (0.0-0.4) 12/14/18 08:26 Baso # 0.1 K/mm3 (0.0-0.1) 12/14/18 08:26 Seg Neutrophils % 71.1 % (40.0-70.0) H 12/14/18 08:26 Seg Neutrophils # 7.0 K/mm3 (1.8-7.7) 12/14/18 08:26 PT 13.4 Sec. (12.2-14.9) 12/13/18 05:59 INR 1.05 (0.87-1.13) 12/13/18 05:59 APTT 29.3 Sec. (24.2-36.6) 12/13/18 05:59 Sodium 138 mmol/L (137-145) 12/14/18 08:26 Potassium 3.4 mmol/L (3.6-5.0) L 12/14/18 08:26 Chloride 106.2 mmol/L (98-107) 12/14/18 08:26 Carbon Dioxide 19 mmol/L (22-30) L 12/14/18 08:26 16 mmol/L 12/14/18 08:26 BUN 4 mg/dL (7-17) L 12/14/18 08:26 0.6 mg/dL (0.7-1.2) L 12/14/18 08:26 Estimated GFR > 60 ml/min 12/14/18 08:26 7 % 12/14/18 08:26 Glucose 99 mg/dL (65-100) 12/14/18 08:26 5.5 % (4-6) 12/13/18 21:14 Lactic Acid 0.90 mmol/L (0.7-2.0) 12/13/18 11:29 Calcium 8.0 mg/dL (8.4-10.2) L 12/14/18 08:26 0.40 mg/dL (0.1-1.2) 12/14/18 08:26 AST 10 units/L (5-40) 12/14/18 08:26 ALT 7 units/L (7-56) 12/14/18 08:26 63 units/L (35-129) 12/14/18 08:26 5.5 g/dL (6.3-8.2) L 12/14/18 08:26 3.2 g/dL (3.9-5) L 12/14/18 08:26 1.4 % 12/14/18 08:26 Yellow (Yellow) 12/13/18 07:10 Clear (Clear) 12/13/18 07:10 6.0 (5.0-7.0) 12/13/18 07:10 Ur Specific [place] 1.008 (1.003-1.030) 12/13/18 07:10 <15 mg/dl mg/dL (Negative) 12/13/18 07:10 Neg mg/dL (Negative) 12/13/18 07:10 Neg mg/dL (Negative) 12/13/18 07:10 Sm (Negative) 12/13/18 07:10 Neg (Negative) 12/13/18 07:10 Neg (Negative) 12/13/18 07:10 < 2.0 mg/dL (<2.0) 12/13/18 07:10 Ur Leukocyte Esterase Tr (Negative) 12/13/18 07:10 2.0 /HPF (0.0-6.0) 12/13/18 07:10 2.0 /HPF (0.0-6.0) 12/13/18 07:10 U Epithel Cells (Auto) < 1.0 /HPF (0-13.0) 12/13/18 07:10 1+ /HPF (Negative) 12/13/18 07:10 Active Medications - Current Medications Current Medications: Generic Name Dose Route Start Last Admin Trade Name Freq PRN Reason Stop Dose Admin Acetaminophen 650 mg 12/13/18 20:39 Tylenol PO Q4H PRN Pain MILD(1-3)/Fever >100.5/SALV[place]OR Albuterol 2.5 mg 12/13/18 20:40 Proventil IH Q6HRT PRN Wheezing Alprazolam 1 mg 12/14/18 10:00 12/14/18 09:04 Xanax PO 1 mg BID CARMEL Administration Arformoterol Tartrate 15 mcg 12/14/18 08:00 12/14/18 07:31 Brovana Nebu IH 15 mcg Q12HRT CARMEL Administration Budesonide 0.5 mg 12/14/18 08:00 12/14/18 07:31 Pulmicort IH 0.5 mg Q12HRT CARMEL Administration Clonidine HCl 0.1 mg 12/13/18 22:00 12/13/18 22:56 Catapres-Tts Patch TD 0.1 mg Tu CARMEL Administration Enoxaparin Sodium 40 mg 12/13/18 22:00 12/13/18 21:44 Lovenox SUB-Q 40 mg QDAY@2200 CARMEL Administration Fluticasone Propionate 50 mcg 12/13/18 21:00 12/14/18 09:04 Flonase NS 50 mcg QDAY CARMEL Administration Hydromorphone HCl 0.5 mg 12/13/18 20:39 Dilaudid IV Q3H PRN Pain , Severe (7-10) Cefepime HCl 2 gm in 100 mls @ 200 mls/hr 12/13/18 09:00 12/14/18 13:18 Maxipime/Ns 2 Gm/100 Ml IV 200 mls/hr Q8HR CARMEL Administration Protocol Metronidazole 500 mg in 100 mls @ 100 mls/hr 12/13/18 09:00 12/14/18 13:20 Flagyl 500 Mg/100 Ml IV 100 mls/hr Q8HR CARMEL Administration Protocol Sodium Chloride 1,000 mls @ 75 mls/hr 12/13/18 21:00 12/14/18 13:19 Nacl 0.9% 1000 Ml IV 75 mls/hr DIRECT CARMEL Administration Metoclopramide HCl 10 mg 12/13/18 20:39 Reglan IV Q6H PRN Nausea And Vomiting Ondansetron HCl 4 mg 12/13/18 20:39 Zofran IV Q8H PRN Nausea And Vomiting Sodium Chloride 10 ml 12/13/18 22:00 12/14/18 09:05 Sodium Chloride Flush Syringe 10 Ml IV Not Given BID CARMEL Sodium Chloride 10 ml 12/13/18 20:39 Sodium Chloride Flush Syringe 10 Ml IV PRN PRN LINE FLUSH Tiotropium [place] 1 puff 12/14/18 10:00 Spiriva IH Q24HR CARMEL
[2018-12-14] MEDS: LOVENOX SUB-Q SCH (21:53)
[2018-12-15] MEDS: MAXIPIME/NS 2 GM/100 ML 2 GM/100 ML BAG IV SCH (05:17)
[2018-12-15] MEDS: FLAGYL 500 MG/100 ML 500 MG/100 ML BAG IV SCH (05:20)
[2018-12-15 05:57] LABS: Basophils # (Auto) 0.1 K/mm3 (0.0-0.1); Basophils % (Auto) 1.4 % (0.0-1.8); Eosinophils # (Auto) 0.5 K/mm3 (0.0-0.4); Eosinophils % (Auto) 7.5 % (0.0-4.3); Hematocrit 32.3 % (30.3-42.9); Lymphocytes # (Auto) 1.7 K/mm3 (1.2-5.4); Lymphocytes % (Auto) 26.6 % (13.4-35.0); Mean Corpuscular HGB Conc 34 % (30-34); Mean Corpuscular Volume 98 fl (79-97); Monocytes # (Auto) 0.5 K/mm3 (0.0-0.8); Monocytes % (Auto) 7.8 % (0.0-7.3); Platelet Count 244 K/mm3 (140-440); Red Cell Distribution Width 13.5 % (13.2-15.2)
[2018-12-15 06:31] LABS: BUN/Creatinine Ratio 3; Blood Urea Nitrogen 2 mg/dL (7-17); Hemolysis Index 1
[2018-12-15] MEDS: BROVANA NEBU IH SCH (07:53)
[2018-12-15] MEDS: PULMICORT IH SCH (07:53)
[2018-12-15] MEDS: NACL 0.9% 1000 ML 1,000 ML IV SCH (09:08)
[2018-12-15] MEDS: XANAX PO SCH (09:09)
[2018-12-15] MEDS: FLONASE NS SCH (09:10)
[2018-12-15] MEDS: SODIUM CHLORIDE FLUSH SYRINGE 10 ML IV SCH (09:10)
[2018-12-15 09:11] VITALS: BP 128/74
--- NOTE | 2018-12-15 09:22 | Discharge Summary ---
Providers - Providers Date of Admission: 12/13/18 11:52 Attending physician: JAMES LOPEZ MD 12/13/18 14:13 Consult to Physician [CONS] Routine Comment: called office/ diaz Consulting Provider: MEET HINOJOSA Physician Instructions: Reason For Exam: Abdominal pain 12/14/18 08:57 Physical Therapy Evaluation and Treat [CONS] Routine Comment: Reason For Exam: Weakness [facility] Reason for admission: diarrhea, colitis Condition: Stable Pertinent studies: CT abdomen and pelvis IMPRESSION: Circumferential thickening of the distal colon consistent with a nonspecific colitis. Scattered simple renal cysts. Hospital course: 73-year-old female with past medical history significant for COPD, hypertension, peripheral neuropathy presented to the emergency department complaining of lower abdominal pain and diarrhea that started yesterday. Patient states she has watery diarrhea initially and later blood mixed. Patient has history of recent use of antibiotics. Colitis; likely due to infectious: Patient was treated with IV cefepime and Flagyl. Symptoms resolved no diarrhea after admission and no sample obtained for c.diff. GI consult appreciated. Patient discharged home with PO antibiotics. Hypertension;Controlled COPD;Not in exacerbation, continue home medications. Patient was hemodynamically stable at the time of discharge. Disposition: - TO HOME OR SELFCARE Time spent for discharge: 32 minutes - Discharge Diagnoses (1) Colitis Status: Acute (2) COPD (chronic obstructive pulmonary disease) Status: Acute Core Measure Documentation - Palliative Care Palliative Care/ Comfort Measures: Not Applicable - Core Measures Any of the following diagnoses?: none Exam - Physical Exam Narrative exam: Not in cardiopulmonary distress. The patient appeared well nourished and normally developed. Vital signs as documented. Head exam is unremarkable. No scleral icterus . Neck is without jugular venous distension, thyromegaly, or carotid bruits. Lungs are clear to auscultation. Cardiac exam reveals regular rate and Rhythm. First and second heart sounds normal. No murmurs, rubs or gallops. Abdominal exam reveals normal bowel sounds, no masses, no organomegaly and no aortic enlargement. Extremities are nonedematous and both femoral and pedal pulses are normal. 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 No focal weakness. - Constitutional Vitals: Temp Pulse Resp BP Pulse Ox 98.5 F 61 18 128/74 95 12/15/18 07:26 12/15/18 09:10 06/20/19 07:58 12/15/18 09:10 12/15/18 07:59 Plan Activity: no restrictions Weight Bearing Status: Full Weight Bearing Diet: advance as tolerated Follow up with: MYRIAM SHELTON MD [Primary Care Provider] - 7 Days Prescriptions: Ciprofloxacin HCl [Ciprofloxacin TAB] 500 mg PO Q12HR #14 tab metroNIDAZOLE [Flagyl] 500 mg PO Q8HR #24 tablet
[2018-12-15] MEDS ORDERED: ZESTRIL PO SCH (10:00)
--- NOTE | 2018-12-15 10:17 | Gastroenterology Progress Note ---
<GLADIS HAN - Last Filed: 12/15/18 10:17> Assessment and Plan 1.lower abdominal pain 2.diarrhea 3.colitis see on CT -afebrile -WBC tended down to now WNL -H/H WNL -abd CT showed nonspecific colitis -stool studies pending -last colonoscopy 1999 with negative results per pt report (followed by [facility] gastroenterology specialists; records unavailable) -etiology-likely infectious given history of recent abx therapy vs other -clinically, patient is stable. Reports feeling better with abd pain and diarrhea improved with no BM so far today. Tolerating diet. -no plan for scope at this time -continue empiric antibiotics and supportive care -patient okay to be d/c per GI standpoint on antibiotics x total of 10 days with f/u in clinic in 2-3 weeks -will sign off, please call if needed Subjective Date of service: 12/15/18 Principal diagnosis: colitis Interval history: Patient resting in bed w/o acute distress. Reports feeling better with abd pain and diarrhea improving. No BM so far this am. Tolerating diet. Objective - Constitutional Vitals: Temp Pulse Resp BP Pulse Ox 98.5 F 61 18 128/74 95 12/15/18 07:26 12/15/18 09:10 12/15/18 07:58 12/15/18 09:10 12/15/18 07:59 General appearance: no acute distress - EENT Eyes: PERRL, EOM intact - Respiratory Respiratory effort: normal - Cardiovascular Rhythm: regular - Gastrointestinal General gastrointestinal: Present: soft, non-tender, non-distended, normal bowel sounds - Neurologic Neurological: alert and oriented x3 - Labs CBC & Chem 7: 12/15/18 05:24 12/15/18 05:24 Labs: Laboratory Results - last 24 hr 12/15/18 12/15/18 05:24 05:24 WBC 6.6 RBC 3.30 L Hgb 11.0 Hct 32.3 MCV 98 H MCH 33 H MCHC 34 RDW 13.5 Plt Count 244 Lymph % (Auto) 26.6 [place] % (Auto) 7.8 H Eos % (Auto) 7.5 H Baso % (Auto) 1.4 Lymph # 1.7 [place] # 0.5 Eos # 0.5 H Baso # 0.1 Seg Neutrophils % 56.7 Seg Neutrophils # 3.7 Sodium 140 Potassium 3.1 L Chloride 107.1 H Carbon Dioxide 23 Anion Gap 13 BUN 2 L Creatinine 0.6 L Estimated GFR > 60 BUN/Creatinine Ratio 3 Glucose 94 Calcium 8.0 L <MEET HINOJOSA - Last Filed: 12/15/18 23:28> Assessment and Plan Patient seen and examined. I agree with the advanced practitioner's assessment and plan with the following additions: patient is much improved today, decrease in TTP and diarrhea improving, complete course of abx and may DC from GI standpoint Objective - Constitutional Vitals: Temp Pulse Resp BP Pulse Ox 98.5 F 61 18 128/74 95 12/15/18 07:26 12/15/18 09:10 12/15/18 07:58 12/15/18 09:10 12/15/18 07:59 - Labs CBC & Chem 7: 12/15/18 05:24 12/15/18 05:24 Labs: Laboratory Results - last 24 hr 12/13/18 12/15/18 12/15/18 21:30 05:24 05:24 WBC 6.6 RBC 3.30 L Hgb 11.0 Hct 32.3 MCV 98 H MCH 33 H MCHC 34 RDW 13.5 Plt Count 244 Lymph % (Auto) 26.6 [place] % (Auto) 7.8 H Eos % (Auto) 7.5 H Baso % (Auto) 1.4 Lymph # 1.7 [place] # 0.5 Eos # 0.5 H Baso # 0.1 Seg Neutrophils % 56.7 Seg Neutrophils # 3.7 Sodium 140 Potassium 3.1 L Chloride 107.1 H Carbon Dioxide 23 Anion Gap 13 BUN 2 L Creatinine 0.6 L Estimated GFR > 60 BUN/Creatinine Ratio 3 Glucose 94 Calcium 8.0 L C. difficile Tox (PCR) Negative
== END 2018-12-15 12:40 | disposition home or self-care (01) | DRG 392 ==
LOC: ED 04:46 → 2B-ACE 11:52
PROVIDERS: ADMIT Internal Medicine; ATTEND Internal Medicine
DX: A09 Infectious gastroenteritis and colitis, unspecified (principal); E87.1 Hypo-osmolality and hyponatremia; R65.10 Systemic inflammatory response syndrome (SIRS) of non-infectious origin without acute organ dysfunction; G89.29 Other chronic pain; M54.9 Dorsalgia, unspecified; F17.210 Nicotine dependence, cigarettes, uncomplicated; J44.9 Chronic obstructive pulmonary disease, unspecified; E87.6 Hypokalemia; E11.42 Type 2 diabetes mellitus with diabetic polyneuropathy; I10 Essential (primary) hypertension; Z90.49 Acquired absence of other specified parts of digestive tract; Z82.49 Family history of ischemic heart disease and other diseases of the circulatory system; Z79.51 Long term (current) use of inhaled steroids; Z98.51 Tubal ligation status; Z71.6 Tobacco abuse counseling; Z79.84 Long term (current) use of oral hypoglycemic drugs
CPT/HCPCS: 36415; 70450; 71250; 74177; 80048; 80053; 81001; 82140; 83036; 85007; 85025; 85610; 85730; 87040; 87045; 87493; 93005; 93010; 94640; 94760; 99406; G0378; J0692; J1170; J1650; J7030; Q9967